=== PATIENT | female | born 1975 | race Two or more races ===

== ENCOUNTER 2020-08-27 19:07 | Emergency (ER) | payer OTHER ==
[~2020-08-27] VITALS: Ht 165.1 cm; Wt 122.5 kg
[2020-08-27] MEDS ORDERED: NAPROXEN375 MG PO ×2 (22:02→22:22)
[2020-08-27] MEDS ORDERED: INTESTINEX680 M2 PO (22:22)
[2020-08-27] MEDS ORDERED: AMOX1TAB5 PO (22:22)
[2020-09-04] MEDS ORDERED: ACETAMINOPHEN500 M1 (06:57)
== END 2020-08-27 22:29 | disposition home or self-care (01) ==
LOC: ER 19:07
DX: S81.022A Laceration with foreign body, left knee, initial encounter (principal); W01.118A Fall on same level from slipping, tripping and stumbling with subsequent striking against other sharp object, initial encounter; Y93.89 Activity, other specified; Y92.821 Forest as the place of occurrence of the external cause; Y99.8 Other external cause status